=== PATIENT | female | born 1960 | race Caucasian/White ===

== ENCOUNTER 2017-01-17 10:15 | Outpatient (CLI) | payer OTHER | END 2017-01-17 10:16 | disposition home or self-care (01) | DX: R09.89 Other specified symptoms and signs involving the circulatory and respiratory systems (principal) ==

== ENCOUNTER 2017-01-21 07:43 | Outpatient (CLI) | payer OTHER | END 2017-01-21 07:44 | disposition home or self-care (01) | DX: Z13.1 Encounter for screening for diabetes mellitus (principal); Z13.0 Encounter for screening for diseases of the blood and blood-forming organs and certain disorders involving the immune mechanism; Z13.228 Encounter for screening for other metabolic disorders; Z13.220 Encounter for screening for lipoid disorders ==

== ENCOUNTER 2017-02-26 06:12 | Day surgery (SDC) | payer OTHER ==
[2017-02-26] MEDS ORDERED: LACTATED RINGERS 1,000 ML IV ONE (06:59)
[2017-02-26] MEDS ORDERED: MIDAZOLAM 2 MG/2 ML VIAL IVP ONE (07:54)
[2017-02-26] MEDS ORDERED: fentaNYL 100 MCG/2 ML VIAL IVP ONE (07:54)
[2017-02-26 08:46] VITALS: BP 105/44
== END 2017-02-26 06:13 | disposition home or self-care (01) ==
LOC: SDS 06:12
PROVIDERS: ATTEND Surgery
PROC: 0DBH8ZZ Excision of Cecum, Via Natural or Artificial Opening Endoscopic (ICD-10-PCS; principal; 2017-02-26 07:30)
DX: Z12.11 Encounter for screening for malignant neoplasm of colon (principal); D12.0 Benign neoplasm of cecum; K64.8 Other hemorrhoids
CPT/HCPCS: 45380; J7120; 88305

== ENCOUNTER 2020-05-19 08:00 | Outpatient (CLI) | payer OTHER ==
--- NOTE | 2020-05-19 16:03 | XRAY Report ---
PROCEDURE: Ribs w/PA Chest RT INDICATIONS: RIGHT SIDED RIB PAIN TECHNIQUE: 3 views of the right ribs were acquired, along with a single view chest. COMPARISON: None FINDINGS: Surgical changes and devices: None. Bones and chest wall: No fractures or dislocations. No suspicious bony lesions. Overlying soft tis sues appear unremarkable. Lungs and pleura: No pleural effusions or pneumothorax. Lungs appear clear. Mediastinum: Mediastinal contours appear normal. Heart size is normal. IMPRESSION: No visualized acute fracture or dislocation. However, occult injury cannot be excluded. Recommend kenn rt interval imaging follow-up in 7-10 days as clinically indicated for additional evaluation. Reviewed by: Petra Blackwood MD on 05/19/2020 4:01 PM PDT Approved by: Petra Blackwood MD on 05/19/2020 4:01 PM PDT Station ID: [id number]
== END 2020-05-19 23:59 | disposition home or self-care (01) ==
LOC: DI.S 08:00 → EDSTATUS 15:14 → DI.S 23:59
PROVIDERS: ATTEND Physician Assistant Medical
DX: R07.81 Pleurodynia (principal)

== ENCOUNTER 2023-08-24 15:29 | Emergency (ER) | payer OTHER ==
[2023-08-24 15:46] VITALS: BP 162/72; O2SAT 100
[2023-08-24] MEDS ORDERED: TETANUS/DIPHTHERIA/PERTUSSIS 0.5 ML SYRINGE IM ONE (15:53)
[2023-08-24] MEDS ORDERED: lidocaine 1% 20 ML MDV SUBQ ONE (15:53)
--- NOTE | 2023-08-24 15:55 | ED Physician Documentation ---
PD HPI UPPER EXT INJURY - Stated complaint Stated Complaint: R FINGER LAC - Chief complaint Chief Complaint: Laceration - History obtained from History obtained from: Patient - Additonal information Additional information: Patient is a 63-year-old female presenting for evaluation of laceration to her right finger which occurred just prior to arrival. She was working on a car lift and caught her finger between 2 metal areas where it was smashed. She is unsure of her last tetanus. She does not take a blood thinner. Review of Systems Skin: reports: Laceration (s) Musculoskeletal: reports: Extremity pain PD PAST MEDICAL HISTORY - Past Medical History Past Medical History: No Cardiovascular: None Respiratory: None Endocrine/Autoimmune: None GI: None : None HEENT: Other Psych: None Musculoskeletal: None Derm: None - Past Surgical History Past Surgical History: No - Allergies Allergies/Adverse Reactions: Allergies Allergy/AdvReac Type Severity Reaction Status Date / Time No Known Drug Allergies Allergy Verified 08/24/23 15:38 - Social History Does the pt smoke?: No Smoking Status: Never smoker Does the pt drink ETOH?: Yes Does the pt have substance abuse?: No - Immunizations Immunizations are current?: Yes - POLST Patient has POLST: No Results - Vitals Vitals: Vital Signs - 24 hr 08/24/23 15:34 Temperature 36.6 C Heart Rate 57 L Respiratory 16 Rate Blood Pressure 162/72 H O2 Saturation 100 Oxygen O2 Source Room air Procedures - Laceration (location) R 2nd finger Length in cm: 3 Wound type: Stellate, Irregular, Clean Neurovascular status: Sensory intact, Motor intact, Vascular intact Tendon involvement: Tendon intact Wound preparation: Hibiclens, Irrigated copiously NS Skin layer closure: Size #-0 - enter number (4), Sutures - enter # (12) Other: Patient tolerated well, No complications, Neurovascular intact, Dressing applied, Tetanus booster given Departure - Departure Disposition: 01 Home, Self Care Clinical Impression: Laceration of right index finger Condition: Stable Instructions: ED Laceration Ext Sutr Stap Tape Comments: Come back for any signs of infection which would include: Redness, swelling, drainage, increased pain, or fevers. You can wash it soap and water. Keep it covered and moist with bacitracin ointment which is available over the counter; avoid neosporin. Follow-up with your physician in about 14 days for suture removal. Forms: PCP List
--- NOTE | 2023-08-24 16:36 | XRAY Report ---
PROCEDURE: Finger(s) RT INDICATIONS: injury to 2nd digit TECHNIQUE: AP hand, 2 views of the second finger(s) acquired. COMPARISON: None. FINDINGS: Bones: No fractures or dislocations. No suspicious bony lesions. Soft tissues: Soft tissue injury is seen of the second finger. IMPRESSION: Soft tissue injury of the second finger, without an acute bony abnormality identified on these plain films. Reviewed by: Elmo Mane MD on 08/24/2023 3:35 PM [place] Approved by: Elmo Mane MD on 08/24/2023 3:35 PM [facility] Station ID: [id number]
[2023-08-24] MEDS ORDERED: oxyCODONE 5 MG TABLET PO STA (17:11)
== END 2023-08-24 17:27 | disposition home or self-care (01) ==
LOC: ED 15:29
DX: S61.210A Laceration without foreign body of right index finger without damage to nail, initial encounter (principal); W23.0XXA Caught, crushed, jammed, or pinched between moving objects, initial encounter; Y93.89 Activity, other specified; Y92.810 Car as the place of occurrence of the external cause; Z23 Encounter for immunization
CPT/HCPCS: 12002; 73140; 90471; 90715; 99283; A9270